=== PATIENT | female | born 1930 | race Caucasian/White ===

== ENCOUNTER 2016-12-04 11:35 | Emergency (ER) | payer MEDICARE, BC ==
--- NOTE | ~2016-12-04 | EKG ---
PATIENT: GREGG WEBB UNIT #: [id number] Ventricular Rate: 64 BPM Atrial Rate: 64 BPM P-R Interval: 134 ms QRS Duration: 120 ms Q-T Interval: 420 ms QTC Calculation(Bezet): 433 ms P [place]: 85 degrees Calculated R [place]: 34 degrees Calculated T [place]: 27 degrees Diagnosis Line: Normal sinus rhythm Diagnosis Line: Right bundle branch block with repolarization Diagnosis Line: abnormality Diagnosis Line: Abnormal ECG Diagnosis Line: When compared with ECG of 11-DEC-2014 12:03, Diagnosis Line: Right bundle branch block is now Present Diagnosis Line: Confirmed by DARA CORTES MD ([id number]) on 12/14/2016 Diagnosis Line: 11:49:04 AM INTERPRETING MD: SOPHIA HIDALGO
--- NOTE | ~2016-12-04 | CR211 ---
[facility] A Service of [facility] RADIOLOGY TEXT RESULTS PATIENT: GREGG WEBB LOCATION: SED : 30 UNIT #: [id number] AGE: [address]: Tae Solo MD SEX: F ORDER DR: [id number] [place] [id number] MR#: [id number] #: [id number] NAME: GREGG WEBB. : 1930 SEX: F STUDY DATE/TIME: 12/04/2016 11:49 UNIT: SED ROOM: STUDY DESCRIPTION: CR Ribs Uni 2 View W PA Ch Rt Attending Physician: Tae Solo M.D. Ordering Physician: Tae Solo M.D. Primary Care Physician: Atif Nugent M.D. MEDICAL IMAGING REPORT This report is preliminary unless electronic signature is present. EXAM Chest and right rib series 12/04/2016 HISTORY 86-year-old female in the ED complaining of acute onset right rib pain after getting up from a chair about 2 days ago. TECHNIQUE AP upright chest x-ray with 4 view right rib series. FINDINGS No acute or chronic right rib fracture is demonstrated. The lungs appear clear with no visible pneumothorax, pulmonary infiltrate or pleural effusion. Mild cardiomegaly. Old healed fracture deformity of the proximal right humerus. IMPRESSION 1. No acute osseous abnormality involving the right ribs. 2. No active disease in the chest. 3. Old healed right proximal humerus fracture deformity. Dictated by... Rainer Oglesby M.D. THIS IS AN ELECTRONICALLY VERIFIED REPORT Rainer Oglesby M.D. at 12/04/2016 3:58 PM JANNETH/babar TD: 12/04/2016 13:42 JOB #: [id number] [facility] A Service of [facility] RADIOLOGY TEXT RESULTS PATIENT: GREGG WEBB LOCATION: SED : 30 UNIT #: [id number] AGE: [address]: Tae Solo MD SEX: F ORDER DR: MEDICAL IMAGING REPORT Page 1 of 1
[~2016-12-04 11:35] MED LIST: ALBUTEROL 0.5ML INH; ALBUTEROL17 G1 IH; ALLEGRA PO; ASPIRIN PO; ASPIRIN81 M1 PO; AVAPRO PO; BACITRACIN15 GM TOP; CORGARD PO; CORGARD20 MG PO; COUMADIN5 MG PO; CRESTOR10 MG; DIAZEPAM PO; DILAUDID2 MG PO; DYAZIDE 37.5/251 CAP PO; EFFEXOR XR PO; FLONASE 0.05% N16 G1; FLONASE16 GM; KEFLEX500 M1 PO; LEVAQUIN PO; LEVAQUIN750 M1 PO; LISINOPRIL20 MG PO; LOTREL 10-20 MG1 CAP PO; LOTREL 5/10 MG1 CAP PO; MACROBID100 MG PO; MEDROL PO; METRONIDAZOLE PO; MOBIC PO; MOBIC15 MG PO; NEXIUM PO; NORCO 7.5-3251 EACH PO; PERCOCET 10/3251 TAB PO; PERCOCET5/325 PO; PHENERGAN25 M1 PO; PREDNISONE PO; PRESERVISION1 EA PO; SINGULAIR PO; SOMA PO; SYMBICORT INH; SYMBICORT80 INH; TYLOX 5/500 CAP1 CAP PO; VICODIN HP 10-1 EACH PO; ZYRTEC PO
[2016-12-04 11:38] LABS: BASOPHIL# 0.1 X10e3 (0-0.3); BASOPHIL% 1.1 % (0-2.5); EOSINOPHIL# 0.2 X10e3 (0-0.7); EOSINOPHIL% 1.6 % (0.0-7.0); HEMATOCRIT 33.9 % (35.0-45.0); HEMOGLOBIN 11.1 gm/dL (12.0-16.0); LYMPHOCYTE# 2.2 X10e3 (1.0-3.5); LYMPHOCYTE% 22.3 % (17.0-45.0); MEAN CORPUSCULAR HEMOGLOBIN 31.5 PG (28-34); MEAN CORPUSCULAR HGB CONC 32.9 g/dL (30-36); MEAN PLATELET VOLUME 7.6 FL (6.5-11.5); MONOCYTE# 1.1 X10e3 (0-1.0); MONOCYTE% 11.1 % (3.0-12.0); NEUTROPHIL# 6.3 X10e3 (1.5-7.1); NEUTROPHIL% 63.9 % (40-75); PLATELET COUNT 271 X10e3 (140-420); RED BLOOD COUNT 3.53 X10e (3.90-5.30); RED CELL DISTRIBUTION WIDTH 15.8 % (11.0-15.5); WHITE BLOOD COUNT 9.8 X10e3 (4.0-10.5)
[2016-12-04 11:47] LABS: DIFF IND NO
[2016-12-04 11:53] LABS: POC - CKMB 2.6 ng/mL (0.0-7.9); POC - TROPONIN <0.05 ng/mL (<=0.05)
[2016-12-04 11:56] LABS: CALCIUM SERUM 9.1 mg/dL (8.4-10.2); POTASSIUM 3.8 mmol/L (3.5-5.1)
[2016-12-04 12:34] LABS: URINE SOURCE CLEAN CATCH
[2016-12-04 12:36] LABS: URINE APPEARANCE CLEAR; URINE BILIRUBIN NEG (NEG); URINE BLOOD NEG (NEG); URINE COLOR YELLOW; URINE GLUCOSE NEG (NORM); URINE KETONE NEG (NEG); URINE LEUKOCYTE ESTERASE NEG (NEG); URINE NITRATE POS (NEG); URINE PROTEIN NEG (NEG); URINE UROBILINOGEN 0.2 MG/DL (NORM)
[2016-12-04 12:40] LABS: MICRO INDICATED? YES; URINE RBC 0-2 /[HPF] (0-2)
[2016-12-04 12:41] LABS: CULTURE INDICATED? YES; URINE BACTERIA 4+ (NEG)
== END 2016-12-04 13:33 | disposition home or self-care (01) ==
LOC: SED 11:35
PROVIDERS: Emergency Medicine
DX: R07.89 Other chest pain (principal); K21.9 Gastro-esophageal reflux disease without esophagitis; Z86.711 Personal history of pulmonary embolism; Z90.710 Acquired absence of both cervix and uterus; Z90.49 Acquired absence of other specified parts of digestive tract
CPT/HCPCS: 36415; 71101; 80048; 81003; 82553; 84484; 85025; 87086; 87088; 87186; 93005; 96374; 96375; 99284; J2270; J2405